=== PATIENT | female | born 1995 | race Caucasian/White ===

== ENCOUNTER 2017-09-17 23:42 | Emergency (ER) | payer BC ==
[~2017-09-17] VITALS: Ht 165.1 cm; Wt 71.3 kg
[2017-09-17] MEDS ORDERED: ONDANSETRON INJ 2 MG/ML 2 ML VIAL IV STA (23:54)
[2017-09-17] MEDS ORDERED: SODIUM CHLORIDE 0.9% 1000ML 2,000 ML IV STA (23:54)
[2017-09-18] MEDS ORDERED: SERT100T PO
[2017-09-18] MEDS ORDERED: BCPILLS PO
--- NOTE | 2017-09-18 | EMERGENCY ROOM VISIT NOTE ---
History Report prepared by Julito: Dwayne Woodruff Under the Supervision of: Dr. Bossman Wynne M.D. First contact with patient: 23:46 Chief Complaint: ALCOHOL OVERDOSE Stated Complaint: ALCOHOL OVERDOSE History of Present Illness The patient is a 22 year old female who presents to the Emergency Room with complaints of intermittent vomiting beginning this evening. The nurse states the patient was vomiting profusely, and her roommate called the ambulance. The patient reports she does not remember what she was drinking today. She notes she graduated yesterday and is not going home for another three days. The patient states she is still slightly nauseous. She denies a history of medical problems, headache, head injury, and trouble eating or drink the past few days. Source of History: patient, nursing staff Onset: this evening Symptom Intensity: profuse Quality: other (vomiting) Timing: intermittent Associated Symptoms: No headache Note: Denies head injury, trouble eating or drinking the past few days Review of Systems See HPI for pertinent positives & negatives. A total of 10 systems reviewed and were otherwise negative. Past Medical & Surgical Medical Problems: (1) No Known Active Medical Problems Family History Patient reports no known family medical history. Social History Alcohol Use: occasionally Marital Status: single Housing Status: lives with roommate Current/Historical Medications Scheduled Control Pills ( Control Pills), 1 TAB PO DAILY Sertraline Hcl (Zoloft), 150 MG PO DAILY Allergies Coded Allergies: No Known Allergies (Unverified , 09/17/17) Physical Exam Vital Signs Date Time Temp Pulse Resp B/P (MAP) Pulse Ox O2 Delivery O2 Flow Rate FiO2 09/18/17 06:06 78 12 105/58 97 09/18/17 05:30 94/48 09/18/17 05:20 70 12 95 Room Air 09/18/17 05:00 93/40 09/18/17 04:50 69 18 96 09/18/17 04:31 88/64 09/18/17 04:20 69 17 96 09/18/17 03:50 68 17 95 09/18/17 03:45 69 17 97 Room Air 09/18/17 03:30 98/55 09/18/17 03:15 73 19 96 09/18/17 03:01 73 09/18/17 03:00 105/57 09/18/17 02:45 85 16 96 09/18/17 02:30 104/49 09/18/17 02:15 72 17 95 09/18/17 02:11 74 18 103/48 95 Room Air 09/18/17 01:10 70 18 92/40 96 Room Air 09/18/17 00:03 36.7 77 18 122/64 98 Room Air 09/17/17 23:56 70 Physical Exam GENERAL: Patient is moderately intoxicated. Smells of alcohol. Well appearing and in no acute distress. Vomit on face. HEAD: No evidence of Trauma. AT/NC EYES: Injected conjunctiva. Normal EOM. Pupils equal/reactive. ENT: Mucous membranes moist, no nasal congestion. NECK: No step-offs, no adenopathy, no meningismus, trachea is midline. LUNGS: No dyspnea. Clear to auscultation and equal bilaterally. No wheeze, no rhonchi. HEART: Regular rate and rhythm. No murmurs, rubs, gallops appreciated. GI: Abdomen soft, nontender, no peritonitis. Bowel sounds positive. No masses appreciated. BACK: No midline tenderness, no stepoffs, no CVA tenderness EXTREMITIES: Normal motion all extremities, no cyanosis, no edema. NEUROLOGIC: Intoxicated. Alert, oriented. No acute motor or sensory deficits, no focal weakness, cranial nerves grossly intact. SKIN: No rash, no jaundice, no diaphoresis. Medical Decision & Procedures Laboratory Results 09/17/17 23:55 Test 09/17/17 23:55 Anion Gap 5.0 mmol/L (3-11) Est Creatinine Clear Calc Drug Dose 115.0 ml/min Estimated GFR () 129.1 Estimated GFR (Non- 111.3 BUN/Creatinine Ratio 16.6 (10-20) Calcium Level 8.7 mg/dl (8.5-10.1) Human Chorionic Gonadotropin, Qual NEG (NEG) Ethyl Alcohol mg/dL 232.0 mg/dl (0-3) Laboratory results as reviewed by me. Medications Administered Medications (Trade) Dose Ordered Sig/Cody Route Start Time Stop Time Status Last Admin Dose Admin Sodium Chloride 2,000 ml @ 999 mls/hr Q2H1M STAT IV 09/17/17 23:54 09/18/17 01:54 DC 09/18/17 00:03 999 MLS/HR Ondansetron HCl (Zofran Inj) 4 mg NOW STAT IV 09/17/17 23:54 09/17/17 23:56 DC 09/18/17 00:03 4 MG ED Course 2347: The patient was evaluated in room B02. A complete history and physical exam was performed. 0130: I reevaluated the patient, and she is still sleeping. 0221: I reevaluated the patient, and she is still sleeping. 0422: I reevaluated the patient, and she is still sleeping. 0554: Reevaluated the patient. She is completely awake, alert, and oriented. Discussed results and discharge instructions: she verbalized understanding and agreement. The patient is ready for discharge. Medical Decision Differential: Alcohol Intoxication, Drug Intoxication, Electrolyte Abnormality, Trauma, Intracranial Event, Toxicological, Excited Delirium, Serotonin Syndrome , amongst other pathologies entertained. 22 yr old intoxicated female brought in by EMS after patient's roomates called 911 due to excessive vomiting after drinking ETOH on graduation weekend. Patient with no evidence nor history for trauma. Did opt to give IV fluids/ zofran given her vomiting. Protecting airway and breathing comfortably throughout ED stay. EtOH positive. Monitored and discharged when awake, alert , oriented and denies any complaints. Medication Reconcilliation Current Medication List: was personally reviewed by me Blood Pressure Screening Patient's blood pressure: Normal blood pressure Blood pressure disposition: Did not require urgent referral Impression Primary Impression: Alcohol use with intoxication Additional Impressions: Vomiting Dehydration Scribe Attestation The scribe's documentation has been prepared under my direction and personally reviewed by me in its entirety. I confirm that the note above accurately reflects all work, treatment, procedures, and medical decision making performed by me. Departure Information Dispostion Home / Self-Care Forms HOME CARE DOCUMENTATION FORM, IMPORTANT VISIT INFORMATION Patient Instructions My [facility] Additional Instructions You were evaluated in emergency department for intoxication. This is a sign of Alcohol Abuse and should not be taken lightly. You had a blood alcohol level that was significantly elevated. Over the next 24 hours keep well hydrated and eat light meals. Don't drink any more alcohol. This is important. Please discuss this visit with your Primary Care Provider, [facility] and/or your loved ones. Unless an exceptional circumstance, the Hospital DOES NOT contact anyone DURING your visit, nor is your Protected Medical Information released to anyone without your approval/request. This means we do not contact your Parents, the Police, etc. However, you will likely receive a bill from the Hospital and/or your Insurance company, which will usually be sent to the Primary Policy [place] (often one's Parents). Furthermore, as a student, your visit report will likely be sent to [facility] as your primary care provider, unless other Provider listed. Call 911 or return to Emergency Department if you develop: Passing out, difficulty breathing, many episodes of vomiting, blood in vomit or stool, abdominal pain, fevers, or other severe symptoms. We are always here to help if you feel you need further evaluation or treatment. Problem Qualifiers
[2017-09-18 00:03] VITALS: TEMP 36.7; Ht 165.1 cm; Wt 71.3 kg
[2017-09-18 00:40] LABS: CALCIUM 8.7 mg/dl (8.5-10.1); CREATININE 0.76 mg/dl (0.60-1.20); POTASSIUM 3.9 mmol/L (3.5-5.1)
[2017-09-18 06:06] VITALS: BP 105/58; PULSE 78; O2SAT 97
== END 2017-09-18 06:07 | disposition home or self-care (01) ==
LOC: EDBD 23:42 → C.EDB 23:44
DX: F10.129 Alcohol abuse with intoxication, unspecified (principal); E86.0 Dehydration